=== PATIENT | female | born 2000 | race Caucasian/White ===

== ENCOUNTER 2022-03-25 02:11 | Emergency (ER) | payer SELFPAY ==
[2022-03-25] MEDS ORDERED: Dexamethasone 4 MG TAB ONE (04:15)
[2022-03-25 04:32] LABS: SARS-CoV-2 NAA Rapid Test Not Detected (NotDetected)
[2022-03-25] MEDS ORDERED: diphenhydrAMINE 12.5 MG/5 ML UDCUP ONE (04:45)
== END 2022-03-25 05:00 | disposition home or self-care (01) ==
LOC: CSHERS 02:11
DX: J02.9 Acute pharyngitis, unspecified (principal); Z20.822 Contact with and (suspected) exposure to COVID-19
CPT/HCPCS: 87081; 87430; 99283; J8540; Q0163